=== PATIENT | female | born 1950 | race American Indian/Alaskan Native ===

== ENCOUNTER 2017-12-21 18:48 | Emergency (ER) | payer MEDICAID, MEDICARE ==
[2017-12-21 19:02] VITALS: RESP 16
--- NOTE | 2017-12-21 20:24 | ED PDOC ---
Arrival/HPI - General Chief Complaint: Back Pain Time Seen by Provider: 12/21/17 19:16 Historian: Patient - History of Present Illness Narrative History of Present Illness (Text): 12/21/17 20:12 67yo female with PMhx of hypertension and Diabetes who present with complaint of left sided lower back pain that radiates to her lower left leg. Patient states pain started yesterday and became worse today. She report history of same pain 3months ago. States the pain improved after she was given ??inject at [facility] for the pain and she did PT. She finished PT 2 weeks ago. States the pain resolved until yesterday. States pain is worse when she tries to stand or with movement and improve when she lay on her right side. She did not take any medication. She denies trauma, urinary/fecal incontinence, abdominal pain, focal weakness, saddle anesthesia, any other complaint. Past Medical History - Provider Review Nursing Documentation Reviewed: Yes - Cardiac Hx Cardiac Disorders: Yes Hx Hypertension: Yes - Pulmonary Hx Respiratory Disorders: No - Neurological Hx Neurological Disorder: No - HEENT Hx HEENT Disorder: No - Renal Hx Renal Disorder: No - Endocrine/Metabolic Hx Endocrine Disorders: Yes Hx Diabetes Mellitus Type 2: Yes - Hematological/Oncological Hx Blood Disorders: No - Integumentary Hx Dermatological Disorder: No - Musculoskeletal/Rheumatological Hx Musculoskeletal Disorders: Yes Hx Back Pain: Yes - Gastrointestinal Hx Gastrointestinal Disorders: No - Genitourinary/Gynecological Hx Genitourinary Disorders: No - Psychiatric Hx Psychophysiologic Disorder: No Hx Substance Use: No Family/Social History - Physician Review Nursing Documentation Reviewed: Yes Family/Social History: Unknown Family HX Smoking Status: Heavy Smoker > 10 Cigarettes Daily Hx Alcohol Use: Yes Frequency of alcohol use: Socially Hx Substance Use: No Allergies/Home Meds Allergies/Adverse Reactions: Allergies No Known Allergies Allergy (Verified 12/21/17 18:57) Home Medications: Home Meds Medication Instructions Recorded Confirmed Atorvastatin [Lipitor] 10 mg PO DIN 12/21/17 12/21/17 Sitagliptin Phos/Metformin HCl 1 tab PO BID 12/21/17 12/21/17 [Janumet 50-500 mg Tablet] Valsartan [Diovan] 160 mg PO DAILY 12/21/17 12/21/17 Review of Systems - Physician Review All systems were reviewed & negative as marked: Yes - Review of Systems Constitutional: Normal Eyes: Normal ENT: Normal Respiratory: Normal Cardiovascular: Normal Gastrointestinal: Normal Genitourinary Female: Normal Musculoskeletal: Back Pain Skin: Normal Neurological: Normal Endocrine: Normal Hemo/Lymphatic: Normal Psychiatric: Normal Physical Exam Vital Signs Reviewed: Yes Vital Signs Temp Pulse Resp BP Pulse Ox 12/21/17 18:58 98.4 F 80 16 158/96 H 100 Temperature: Afebrile Blood Pressure: Normal Pulse: Regular Respiratory Rate: Normal Appearance: Positive for: Well-Appearing, Non-Toxic, Comfortable Pain Distress: None Mental Status: Positive for: Alert and Oriented X 3 - Systems Exam Head: Present: Atraumatic, Normocephalic Pupils: Present: PERRL Extroacular Muscles: Present: EOMI Conjunctiva: Present: Normal Mouth: Present: Moist Mucous Membranes Neck: Present: Normal Range of Motion Respiratory/Chest: Present: Clear to Auscultation, Good Air Exchange. No: Respiratory Distress, Accessory Muscle Use Cardiovascular: Present: Regular Rate and Rhythm, Normal S1, S2. No: Murmurs Abdomen: No: Tenderness, Distention, Peritoneal Signs Back: Present: Pain with Leg Raise (Left leg). No: Midline Tenderness, Paraspinal Tenderness Upper Extremity: Present: Normal Inspection. No: Cyanosis, Edema Lower Extremity: Present: Normal Inspection. No: Edema Neurological: Present: GCS=15, CN II-XII Intact, Speech Normal Skin: Present: Warm, Dry, Normal Color. No: Rashes Psychiatric: Present: Alert, Oriented x 3, Normal Insight, Normal Concentration Medical Decision Making ED Course and Treatment: 12/21/17 21:25 PT present to ED for stated history. She declined Percocet. she however states her pain improved with Toradol and Flexeril in ED. She was ambulatory and neurological intact. LS CT IMPRESSION: 1. At L5-S1, there is a left paracentral disc herniation/protrusion, which encroaches upon and posterior displaces the left S1 nerve root within the left lateral recess. There is a minimal impression on the ventral thecal sac. Mild left neural foraminal narrowing is identified. These findings can be further evaluated with MRI. 2. A large hypodense uterine mass is partially visualized. Further evaluation with ultrasonography is recommended. 3. Additional findings described above. Result was DW the pt. she was fiven a copy of the CT and strongly advised to f/ u with her PMD/PAGE TECHNICIAN. Naprosyn and flexeril was given for pain. TRT ED for any new or worsening symptoms - RAD Interpretation Radiology Orders: 12/21/17 19:16 LUMBAR SPINE W/O CONTRAST [CT] Stat - Medication Orders Current Medication Orders: Discontinued Medications Cyclobenzaprine HCl (Flexeril) 10 mg PO STAT STA Stop: 12/21/17 19:18 Last Admin: 12/21/17 19:36 Dose: 10 mg Ketorolac Tromethamine (Toradol) 60 mg IM STAT STA Stop: 12/21/17 19:18 Last Admin: 12/21/17 19:34 Dose: 60 mg MAR Pain Assessment Document 12/21/17 19:34 MS (Rec: 12/21/17 19:35 MS [id number]) Pain Reassessment Is this a pain reassessment? No Presence of Pain Presence of Pain Yes Pain Scale Used Pain Scale Used Numeric Location Left, Right or Bilateral Left Upper or Lower Lower Pain Location Body Site Back Description Description Intermittent Intensity of Pain at present 8 Pain Behavior Guarding Rubbing Site IM Administration Charges Document 12/21/17 19:34 MS (Rec: 12/21/17 19:35 MS [id number]) Injection Site MAR Injection Site Left Deltoid Charges for Administration # of IM Administrations 1 Oxycodone/Acetaminophen (Percocet 5/325 Mg Tab) 1 tab PO STAT STA Stop: 12/21/17 21:07 Last Admin: 12/21/17 21:10 Dose: Not Given Non-Admin Reason: Patient Refused Disposition/Present on Arrival - Present on Arrival Any Indicators Present on Arrival: No History of DVT/PE: No History of Uncontrolled Diabetes: Yes Urinary Catheter: No History of Decub. Ulcer: No History Surgical Site Infection Following: None - Disposition Have Diagnosis and Disposition been Completed?: Yes Diagnosis: Back pain, Sciatica Disposition: HOME/ ROUTINE Disposition Time: 21:30 Patient Plan: Discharge Condition: STABLE Discharge Instructions (ExitCare): Sciatica (DC) Additional Instructions: Follow up with your Doctor/PAGE TECHNICIAN Return to ED for any new or worsening symptoms Prescriptions: Cyclobenzaprine [Cyclobenzaprine HCl] 10 mg PO DAILY #10 tab Naproxen [Naprosyn] 500 mg PO BID #20 tablet Referrals: [facility], [Primary Care Provider] - Follow up with primary Nimesh Bond III, MD [Medical Doctor] - Follow up with primary Herman Ramos MD [Staff Provider] - Follow up with primary Forms: [employer] (Hungarian)
[2017-12-21] MEDS ORDERED: Oxycodone/Acetaminophen 5/325 mg Tab PO STA (21:06)
--- NOTE | 2017-12-21 21:19 | CT ---
EXAM: CT Lumbar Spine Without Intravenous Contrast EXAM DATE/TIME: 12/21/2017 7:16 PM CLINICAL HISTORY: The patient age is 67 years old and is female; Pain; Low back pain Facility exam id and description: Ct lumbs lumbar spine w/o contrast TECHNIQUE: Axial computed tomography images of the lumbar spine without intravenous contrast. All CT scans at this facility use one or more dose reduction techniques, viz.: automated exposure control; ma/kV adjustment per patient size (including targeted exams where dose is matched to indication; i.e. head); or iterative reconstruction technique. Coronal and sagittal reformatted images were created and reviewed. COMPARISON: No relevant prior studies available. FINDINGS: Vertebrae: The lumbar vertebral bodies are normal in height, without abnormal subluxation. There is no acute fracture within the lumbar spine. There is no significant scoliosis of the lumbar spine. Discs/spinal canal/neural foramina: At L5-S1, there is a left paracentral disc herniation/protrusion, which encroaches upon and posterior displaces the left S1 nerve root within the left lateral recess. There is effacement of the anterior epidural fat, with a minimal impression on the ventral thecal sac. The thecal sac tapers at this level. Mild left neural foraminal narrowing is identified. There is mild bulging at L4-5 causing effacement of the anterior epidural fat, without significant narrowing of the thecal sac. There is mild bulging of the neural foramina, without significant neural foraminal narrowing. There is no significant spinal canal stenosis at the remaining lumbar levels. Vasculature: There is atherosclerotic calcification of the abdominal aorta. Reproductive: A large hypodense uterine mass is partially visualized. This measures approximately 6.3 x 7.2 cm and extends out of the [id number] of the study. Other findings: There is a small hiatal hernia. IMPRESSION: 1. At L5-S1, there is a left paracentral disc herniation/protrusion, which encroaches upon and posterior displaces the left S1 nerve root within the left lateral recess. There is a minimal impression on the ventral thecal sac. Mild left neural foraminal narrowing is identified. These findings can be further evaluated with MRI. 2. A large hypodense uterine mass is partially visualized. Further evaluation with ultrasonography is recommended. 3. Additional findings described above.
[2017-12-21 21:55] VITALS: BP 148/90; PULSE 88; TEMP 97.8; O2SAT 99
== END 2017-12-21 21:47 | disposition home or self-care (01) ==
LOC: ED 18:48
DX: M54.40 Lumbago with sciatica, unspecified side (principal)
CPT/HCPCS: 72131; 96372; 99282; J1885